=== PATIENT | male | born 1970 | race Caucasian/White ===

== ENCOUNTER 2024-08-02 21:02 | Emergency (ER) | payer OTHER, SELFPAY ==
[2024-08-02 21:06] VITALS: BP 162/98
[2024-08-02 21:18] VITALS: BMI 37.2
[2024-08-02 21:23] VITALS: BP 138/84
--- NOTE | 2024-08-02 22:27 | ED.GENMED ---
History of Present Illness
General
Chief Complaint: Extremity Pain (non-traumatic)
Source: patient
Exam Limitations: none
Time Seen by Provider: 08/02/24 22:18
Nursing documentation reviewed up to this point in time: agreed with except (Right upper thigh not left upper thigh)
History of Present Illness
History of Present Illness:
Pleasant 54-year-old male who presents to the emergency department with right upper thigh pain that occurred spontaneously. He states that he was taking it easy today. He states that the pain came on suddenly. Denies chest pain or shortness of
breath. He states that he noticed some swelling in the thigh but that has gone down. Denies any lower leg pain.
Phy Exam
General Physical Exam
General Presentation: well appearing
General age: appears stated age
General Skin: warm and dry
General Habitus: normal
General Mental: alert
General Hydration: appears well hydrated
ENT Exam
ENT Exam: EOMI, pharynx normal, neck supple and normocephalic
Eye Exam
Eye Exam: PERRL, cornea clear and conjunctiva normal
Cardiovascular Exam
Cardiovascular Exam: regular rate/rhythm, no edema, no murmur and normal peripheral pulses
Pulmonary Exam
Pulmonary Exam: lungs clear and no respiratory distress
Gastrointestinal Exam
Gastrointestinal Exam: normal bowel sounds, non tender, soft, no organomegaly, no pulsatile mass and non distended
Neurological Exam
Neurological Exam: alert, oriented x3, no motor deficits and speech normal
Musculoskeletal Exam
Musculoskeletal Exam: full ROM, no edema and neuro vasc intact
Skin Exam
Skin Exam: normal color
Psychiatric Exam
Psychiatric Exam: normal mood/affect
Course
Orders/Labs/Results
Orders:
Orders
08/02/24 22:24
US Legs, Right [US Periph Venous LOWER Ext RT] Urgent
Comment:
Reason For Exam: RZ leg pain, Spontaneous
Vital Signs
Initial and Last Documented VS:
Initial Vital Signs
Temp Pulse Resp BP Pulse Ox
98.9 F 96 18 162/98 98
08/02/24 21:06 08/02/24 21:06 08/02/24 21:06 08/02/24 21:06 08/02/24 21:06
Last Documented Vital Signs
Temp Pulse Resp BP Pulse Ox
98.9 F 78 18 119/74 96
08/02/24 21:06 08/02/24 23:55 08/02/24 23:55 08/02/24 23:55 08/02/24 23:55
*Pulse Oximetry
Patient hypoxic: no (Patient not hypoxic 96% on room air)
*Critical Care Note
Total Time (30-74mins, 75-104mins- exclusive of procedures): Not Applicable
Update Note
Update Note:
Verbal report from adventure guide is negative for DVT or any other obvious abnormalities in the right upper leg
Differential could be musculoskeletal pull, muscle spasm
Will try a course of NSAIDs. Will prescribe Voltaren
ED Attending Note
-
Portions of this chart may have been created with voice recognition software.� Occasional wrong word or��sound alike� substitutions may have occurred due to the inherent limitations of voice recognition software.
Discharge Plan
Departure
Patient Disposition: Home (Routine Discharge)
Date of Disposition: 08/02/24
Time of Disposition: 23:59
Patient with high blood pressure during this ER visit?: Yes
Discharge Problem:
Musculoskeletal pain of right thigh
Instructions: Muscle and Bone Pain (DC)
Prescriptions:
New
diclofenac sodium 75 mg tablet,delayed release (DR/EC)
75 mg PO BID Qty: 10 0RF
Referrals:
Dalila Garza MD [Family Provider, Family Practice]
Activity Restrictions/Additional Instructions:
Thank You for choosing [facility].
It was a pleasure meeting you and taking part in your care. We hope for your continued healing and wellness.
Please read discharge instructions in their entirety. However, they are for general education and may not describe your exact diagnosis at discharge. Information on your ER visit and medical conditions were discussed with you along with appropriate
follow up information...
If indicated, please take your medications as instructed and indicated on discharge paperwork.
Please schedule a follow up appointment as directed. Call to schedule an appointment
Please return to the emergency department with ANY change in, persisting, or worsening of symptoms. If any of your symptoms do not improve, or persist, or become more severe within 6-12 hours, please return to the emergency department for further
care.
Please return to the emergency department if you develop a headache, neck pain/stiffness, fever greater than 100.4F, chest pain, shortness of breath, persistent nausea, vomiting, slurred speech, difficulty walking, numbness/tingling, weakness, signs
of infection or any other symptoms that are worrisome to you.
If you have any questions or concerns please do not hesitate to call the Hospital at or E-mail me directly at [email or web address]
Interventions
Interventions:
*Risk Screen - Suicide Last Done: 08/02/24 21:06
*General Assessment Last Done: 08/02/24 21:06
*Neglect/Abuse Screening Last Done: 08/03/24 00:15
*ED- Fall Risk Assessment Last Done: 08/02/24 21:06
*ED COVID-19 Vaccine History Last Done: 08/02/24 21:06
*Nursing Disposition Last Done: 08/03/24 00:15
ED-Skin Assessment Last Done: 08/02/24 21:19
ED-Peripheral Vascular Assessment Last Done: 08/02/24 21:19
ED-Musculoskeletal Assessment Last Done: 08/02/24 21:19
Discharge Date and Time
Discharge Date/Time: 08/03/24 00:17
Print Language: KENYAN
[2024-08-02 23:55] VITALS: BP 119/74
== END 2024-08-03 00:17 | disposition home or self-care (01) ==
LOC: EMR 21:02
PROVIDERS: EMERGENCY PHYSICIAN Student in an Organized Health Care Education/Training Program; FAMILY PHYSICIAN Family Medicine
DX: M79.651 Pain in right thigh (principal); M79.18 Myalgia, other site; M79.89 Other specified soft tissue disorders; R03.0 Elevated blood-pressure reading, without diagnosis of hypertension
CPT/HCPCS: 99284; 93971